=== PATIENT | female | born 1960 | race Caucasian/White ===

== ENCOUNTER 2017-12-13 18:07 | Emergency (ER) | payer MEDICAID ==
[2017-12-13 18:58] VITALS: BP 126/78; PULSE 54; RESP 16; TEMP 98.2; O2SAT 99
--- NOTE | 2017-12-13 19:30 | ED PDOC ---
HPI: Female Pain Time Seen by Provider: 12/13/17 19:16 Chief Complaint (Nursing): Female Genitourinary Chief Complaint (Provider): DYSURIA History Per: Patient (57 Y/O FEMALE HERE WITH DYSURIA/URINARY FREQUENCY/HESITANCY/BURNING WITH URINATION NOTED X 3 DAYS. DENIES ANY FEVERS/CHILLS. NO PRIOR UTI. NO BACK PAIN. NOTES MILD SUPRAPUBIC PAIN WITH URINARY EFFORT.) Past Medical History Reviewed: Historical Data, Nursing Documentation, Vital Signs Vital Signs: Last Vital Signs Temp 98.2 F 12/13/17 18:56 Pulse 54 L 12/13/17 18:56 Resp 16 12/13/17 18:56 BP 126/78 12/13/17 18:56 Pulse Ox 99 12/13/17 18:56 - Medical History PMH: Gall Bladder Disease, Hypothyroidism - Surgical History Surgical History: Cholecystectomy - Family History Family History: States: No Known Family Hx - Home Medications Home Medications: Ambulatory Orders Medication Instructions Recorded Oxycodone HCl/Acetaminophen 1 tab PO Q6 PRN #12 tab 08/07/14 [Percocet 325 mg-5 mg] Cephalexin [Keflex] 500 mg PO TID #15 capsule 12/13/17 Phenazopyridine HCl [Pyridium] 200 mg PO Q12 PRN #6 tablet 12/13/17 - Allergies Allergies/Adverse Reactions: Allergies Allergy/AdvReac Type Severity Reaction Status Date / Time No Known Allergies Allergy Verified 12/13/17 18:56 Review of Systems ROS Statement: Except As Marked, All Systems Reviewed And Found Negative Physical Exam - Reviewed Nursing Documentation Reviewed: Yes Vital Signs Reviewed: Yes - Physical Exam Appears: Positive for: Well, Non-toxic, No Acute Distress Head Exam: Positive for: ATRAUMATIC, NORMAL INSPECTION, NORMOCEPHALIC Skin: Positive for: Normal Color, Warm, DRY Eye Exam: Positive for: EOMI, Normal appearance, PERRL ENT: Positive for: Normal ENT Inspection Neck: Positive for: Normal, Painless ROM Cardiovascular/Chest: Positive for: Regular Rate, Rhythm Respiratory: Positive for: CNT, Normal Breath Sounds Gastrointestinal/Abdominal: Positive for: Normal Exam, Soft Back: Positive for: Normal Inspection Extremity: Positive for: Normal ROM Neurologic/Psych: Positive for: Alert, Oriented - Laboratory Results Urine dip results: Positive for: Leukocyte Esterase, Blood, Nitrate. Negative for: Ketones, Glucose, Bilirubin, Protein - ECG O2 Sat by Pulse Oximetry: 99 Disposition - Clinical Impression Clinical Impression: Urinary tract infection - Patient ED Disposition Is Patient to be Admitted: No - Disposition Referrals: [facility] [Outside] Disposition: Routine/Home Disposition Time: 19:30 Condition: FAIR Prescriptions: Cephalexin [Keflex] 500 mg PO TID #15 capsule Phenazopyridine HCl [Pyridium] 200 mg PO Q12 PRN #6 tablet PRN Reason: Urinary Discomt Instructions: Urinary Tract Infections in Adults, Urinary Tract Infection, Adult (DC) Forms: [facility] ED School/Work Excuse Print Language: IRISH
[2017-12-13 20:37] LABS: SQUAMOUS EPITHIAL 2 /hpf (0-5); URINE BACTERIA OCC (<OCC); URINE BILIRUBIN NEGATIVE (NEGATIVE); URINE BLOOD MODERATE (NEGATIVE); URINE CLARITY CLOUDY (Clear); URINE COLOR AMBER (YELLOW); URINE GLUCOSE (UA) NEG (Normal); URINE LEUKOCYTE ESTERASE MOD Leu/uL (Negative); URINE PROTEIN 30 mg/dL (NEGATIVE); WBC CLUMPS MANY /hpf
== END 2017-12-13 20:17 | disposition home or self-care (01) ==
LOC: H.ER 18:07
DX: N39.0 Urinary tract infection, site not specified (principal)